=== PATIENT | female | born 1970 | race Caucasian/White ===

== ENCOUNTER 2017-11-03 23:34 | Emergency (ER) | payer MEDICARE, OTHER ==
[2017-11-04 00:08] LABS: Bilirubin Negative (Negative); Blood, Urine Negative (Negative); Clarity CLEAR (Clear); Glucose, Urine (Dipstick) 100 mg/dL (Negative); Leukocyte Large (Negative); Nitrite Negative (Negative); Protein, Urine (Dipstick) Negative (Neg-Trace); Specific Gravity, Urine 1.015 (1.002-1.036)
[2017-11-04 00:09] LABS: Bacteria/HPF 2+ HPF (None Seen); Hyaline Casts/LPF 0-3 HYALINE CAST LPF (0-3 Hyaline); Pathc Cast-AUWi Flag 0.14 (0-2.49); RBC/HPF 0-3 HPF (0-3); Squamous Epithelial 0-3 HPF (0-3)
[2017-11-04] MEDS ORDERED: Ketorolac Tromethamine 30 MG/ML VIAL ONE (00:09)
[2017-11-04 00:24] LABS: #Eosinphils 0.1 thou/uL (0.0-0.7); #Lymphocytes 3.1 thou/uL (1.20-3.40); #Monocytes 0.5 thou/uL (0.11-0.59); #Neutrophils 5.1 thou/uL (1.40-6.50); %Basophils 0.5 % (0.0-1.0); %Eosinophils 1.2 % (0.0-10.0); %Lymphocytes 34.7 % (21.0-51.0); %Monocytes 6.1 % (0.0-10.0); %Neutrophils 57.5 % (42.0-75.0); Hemoglobin 13.2 g/dL (12.0-16.0); Mean Corpuscular Hemoglobin 29.1 pg (27.0-31.0); Mean Corpuscular Volume 80.9 fl (81.0-99.0); Platelet Count 224 thou/uL (130-400); RBC Distribution Width 12.9 % (11.5-14.5); Red Blood Cell (RBC) Count 4.53 mill/uL (4.20-5.40); White Blood Cell (WBC) Count 8.8 thou/uL (4.8-10.8)
[2017-11-04 00:41] LABS: BHCG - Serum Negative (NEGATIVE); Pregs Control Background? CLEAR/WHITE (CLR/WHITE); Pregs Control Bar Appear? YES (CONTROL BAR)
[2017-11-04 00:45] LABS: ALT (SGPT) 18 U/L (8-55); AST (SGOT) 14 U/L (5-34); Albumin 4.4 g/dL (3.5-5.0); Alkaline Phosphatase 60 U/L (40-150); Anion Gap 16 mmol/L (10-20); BUN (Urea Nitrogen) 15 mg/dL (7.0-18.7); Bilirubin, Total 0.2 mg/dL (0.2-1.2); Calc. Creatinine Clearance 0 mL/min (70-130); Calcium 10.2 mg/dL (7.8-10.44); Carbon Dioxide 23 mmol/L (22-29); Chloride 104 mmol/L (98-107); Estimated GFR-MDRD 65; Globulin 2.8 g/dL (2.4-3.5); Glucose 120 mg/dL (70-105); Lipase 60 U/L (8-78); Potassium 3.5 mmol/L (3.5-5.1); Protein, Total 7.2 g/dL (6.0-8.3); Sodium 139 mmol/L (136-145)
[2017-11-04] MEDS ORDERED: traMADol HCl 50 MG TAB ONE (02:20)
--- NOTE | 2017-11-04 11:24 | CT ---
PRELIMINARY REPORT/[facility]/EMERGENCY AFTER HOURS PROCEDURE: EXAM: CT Abdomen and Pelvis Without Intravenous Contrast CLINICAL HISTORY: 47 years old, female; Pain; Abdominal pain; Localized; Lower; Patient HX: Er 8; F47 presents to ed vi a ems transport C/O abd pain, onset tonight. Pt reports lower abd pain that radiates to her back. Matt n quality is stabbing and onset was sudden and began as pressure then quickly became severe and sharp. Last bm this morning, and it was nrml. Associated with foul smelling urine. Denies incr ur inary frequency. No HX kidney stones. Surgical history of appendectomy, surgical history of hysterect caitlyn TECHNIQUE: Axial computed tomography images of the abdomen and pelvis without intravenous contrast. Coronal refo rmatted images were created and reviewed. COMPARISON: No relevant prior studies available. FINDINGS: Lung bases: Normal. No mass. No consolidation. ABDOMEN: Liver: Normal. Gallbladder and bile ducts: Normal. Pancreas: Normal. Spleen: Normal. Adrenals: Normal. Kidneys and ureters: Normal. Stomach and bowel: Few loops of nondilated, minimally thickened mid small bowel, possibly mild enteri tis. Appendix: No findings to suggest acute appendicitis. PELVIS: Bladder: Normal. Reproductive: Uterus is surgically absent. ABDOMEN and PELVIS: Intraperitoneal space: Normal. No free air. No significant fluid collection. Bones/joints: No acute fracture. No dislocation. Soft tissues: Normal. Vasculature: Multiple phleboliths within the pelvis. No abdominal aortic aneurysm. Lymph nodes: Normal. IMPRESSION: 1. Few loops of nondilated, minimally thickened mid small bowel, possibly mild enteritis. 2. Incidental/non-acute findings are described above. Thank you for allowing us to participate in the care of your patient. Dictated and Authenticated by: Emmanuel Rodríguez MD 11/04/2017 12:58 AM Central Time ([place] & [place]) FINAL REPORT CT ABDOMEN AND PELVIS NONCONTRAST PERFORMED ON AN EMERGENCY BASIS: Date: 11/04/17 Time: 0027 hours HISTORY: Bilateral flank pain. FINDINGS: No comparison. Findings agree with the preliminary report by Oton[facility]. Phleboliths are apparent within th e retroperitoneum. No CT evidence of urinary tract obstruction or calcification. Lack of contrast dec reases sensitivity of exam for other abnormalities. Mildly distended fluid-filled small bowel loops i n the upper abdomen are nonspecific. POS: H
== END 2017-11-04 02:30 | disposition home or self-care (01) ==
LOC: ERS 23:34
DX: Z79.899 Other long term (current) drug therapy; E78.5 Hyperlipidemia, unspecified; Z79.84 Long term (current) use of oral hypoglycemic drugs; F20.9 Schizophrenia, unspecified; I10 Essential (primary) hypertension; F41.9 Anxiety disorder, unspecified; F32.9 Major depressive disorder, single episode, unspecified; E11.9 Type 2 diabetes mellitus without complications; N30.00 Acute cystitis without hematuria
CPT/HCPCS: 36415; 74176; 80053; 81003; 81015; 83690; 84703; 85025; 96374; J1885

== ENCOUNTER 2017-11-21 09:20 | Observation (INO) | payer MEDICARE ==
[2017-11-21 10:16] LABS: #Eosinphils 0.1 thou/uL (0.0-0.7); #Lymphocytes 1.6 thou/uL (1.20-3.40); #Monocytes 0.4 thou/uL (0.11-0.59); #Neutrophils 3.7 thou/uL (1.40-6.50); %Basophils 0.1 % (0.0-1.0); %Eosinophils 1.6 % (0.0-10.0); %Lymphocytes 28.1 % (21.0-51.0); %Monocytes 7.4 % (0.0-10.0); %Neutrophils 62.8 % (42.0-75.0); Hemoglobin 12.5 g/dL (12.0-16.0); Mean Corpuscular HGB CONC 33.9 g/dL (32.0-36.0); Mean Corpuscular Hemoglobin 27.9 pg (27.0-31.0); Mean Corpuscular Volume 82.2 fl (81.0-99.0); Mean Platelet Volume 6.7 fL (7.4-10.4); Platelet Count 200 thou/uL (130-400); RBC Distribution Width 12.9 % (11.5-14.5); Red Blood Cell (RBC) Count 4.47 mill/uL (4.20-5.40); White Blood Cell (WBC) Count 5.8 thou/uL (4.8-10.8)
[2017-11-21] MEDS ORDERED: Morphine 4 MG/ML VIAL ONE (10:22)
[2017-11-21 10:25] LABS: AST (SGOT) 30 U/L (5-34); Albumin 4.2 g/dL (3.5-5.0); Alkaline Phosphatase 64 U/L (40-150); Anion Gap 15 mmol/L (10-20); BUN (Urea Nitrogen) 7 mg/dL (7.0-18.7); Bilirubin, Total 0.3 mg/dL (0.2-1.2); Calc. Creatinine Clearance 0 mL/min (70-130); Calcium 9.7 mg/dL (7.8-10.44); Carbon Dioxide 25 mmol/L (22-29); Chloride 103 mmol/L (98-107); Estimated GFR-MDRD 84; Globulin 2.7 g/dL (2.4-3.5); Glucose 268 mg/dL (70-105); Potassium 3.6 mmol/L (3.5-5.1); Protein, Total 6.9 g/dL (6.0-8.3); Sodium 139 mmol/L (136-145)
[2017-11-21 10:26] LABS: ALT (SGPT) 43 U/L (8-55); CK (CPK) 59 U/L (29-168)
--- NOTE | 2017-11-21 10:27 | RAD ---
CHEST 1 VIEW: Date: 11/21/17 HISTORY: Chest pain. COMPARISON: Chest radiograph from 2010. FINDINGS: Lungs are clear. No pneumothorax or effusion. Cardiac silhouette and mediastinal contours are within normal limits. Mild dextroscoliosis of the lower thoracic spine. IMPRESSION: No acute intrathoracic abnormality. POS: T[facility]
[2017-11-21 10:29] LABS: Troponin I Less than 0.010 ng/mL (< 0.028)
[2017-11-21 10:37] LABS: Lipase 52 U/L (8-78); Magnesium 1.8 mg/dL (1.6-2.6)
--- NOTE | 2017-11-21 12:43 | HP ---
PRIMARY CARE PHYSICIAN: Daniel Juarez M.D. REASON FOR ADMISSION: Chest pain. HISTORY OF PRESENT ILLNESS: A 47-year-old female who has underlying history of diabetes type 2, hype rtension, and dyslipidemia who presented to emergency room with complaint of chest pain. Patient rep orts that chest pain started last night. It was across the chest with radiation to left upper extrem ity and back. Patient was also experiencing pain radiating to neck. Her intensity of pain was 8/10. It was getting worse with movement. There was no relation of chest discomfort with food, respirati on or activity. Patient felt mild nausea and mild dizziness. She denies any associated shortness of breath and palpitations. She denies any syncopal episode. She denies any orthopnea, PND or leg swe lling. Patient mainly reported that with movement or taking a deep breath, her chest pain was gettin g worse. In the emergency room, patient was hemodynamically stable. Her D-dimer was negative. Her chest x-ra y was normal. Her routine blood test including CBC, BMP, and cardiac enzymes were negative. Her EKG was also not showing any acute ischemic changes. The patient never had any cardiac workup. The pat ient is over concerned about her heart. Patient also feels acid reflux symptoms intermittently. Cur rently, she denies any burping. She denies any epigastric pain. She denies taking any NSAIDs. ALLERGIES: ROCEPHIN. CURRENT HOME MEDICATIONS: Lipitor 20 mg p.o. daily, tramadol 50 mg q.8 hourly p.r.n., lisinopril 20 mg p.o. daily, metformin 850 mg twice daily, Novolin insulin 80 units subcu in the morning and 70 uni ts in evening. REVIEW OF SYSTEMS: The following complete review of systems was negative, unless otherwise mentioned in the HPI or below: Constitutional: Weight loss or gain, ability to conduct usual activities. Skin: Rash, itching. Eyes: Double vision, pain. ENT/Mouth: Nose bleeding, neck stiffness, pain, tenderness. Cardiovascular: Palpitations, dyspnea on exertion, orthopnea. Respiratory: Shortness of breath, wheezing, cough, hemoptysis, fever or night sweats. Gastrointestinal: Poor appetite, abdominal pain, heartburn, nausea, vomiting, constipation, or diarr hea. Genitourinary: Urgency, frequency, dysuria, nocturia. Musculoskeletal: Pain, swelling. Neurologic/Psychiatric: Anxiety, depression. Allergy/Immunologic: Skin rash, bleeding tendency. Please see my HPI for pertinent positive and negative. All other review of systems reviewed and nega tive except as mentioned in the HPI. PAST MEDICAL HISTORY: Diabetes type 2, hypertension, dyslipidemia, and migraine headache. PAST SURGICAL HISTORY: Appendicectomy and hysterectomy. PAST PSYCHIATRIC HISTORY: Anxiety, depression, and schizophrenia. The patient is not on any specifi c medication at this point. SOCIAL HISTORY: The patient lives at home with family. No history of tobacco, alcohol or illicit dr ug abuse. FAMILY HISTORY: Positive for coronary artery disease to father and grandmother. No strong family hi story of cancer or stroke. EMERGENCY ROOM COURSE: Patient is given morphine 4 mg. PHYSICAL EXAMINATION: VITAL SIGNS: On arrival, blood pressure 132/96, pulse 82, respiratory rate 20, temperature 98.5, sat uration 99% on room air, and weight 59.8 kilograms. GENERAL: Patient is currently alert, awake, in no obvious acute distress. HEAD: Normocephalic, atraumatic. EYES: Pupils round, reactive to light. Extraocular muscle intact. ENT: Oropharynx within normal limits. Moist mucous membranes, no oral lesion, no pharyngeal erythem a, no exudate. NECK: Supple, no JVD, no thyromegaly, no carotid bruit, no jugular venous distention. LUNGS: Clear to auscultation without any rhonchi or rales. CARDIAC: S1 and S2 regular without any significant murmur. ABDOMEN: Obesity present. Bowel sounds present, nontender, nondistended. No organomegaly, no mass, no suprapubic tenderness. BACK: Examination unremarkable, no CVA tenderness. EXTREMITIES: Upper extremity passive movements of all joints are normal. Lower extremities: No caio ma. Good peripheral pulsation, no calf tenderness, no edema. SKIN: No skin rash. HEMATOLOGICAL SYSTEM: No lymphadenopathy. PSYCHIATRIC: Normal affect. NEUROLOGIC: Nonfocal examination. The patient moves all 4 limbs. No cerebellar sign. Speech christian l. IMAGING DATA AND SIGNIFICANT LABORATORY DATA: 1. EKG showing normal sinus rhythm within normal limit. 2. Chest x-ray based on my review, no acute cardiopulmonary process. 3. CBC: WBC 5.8, hemoglobin 12.5, and platelet 200. 4. D-dimer less than 0.27. 5. BMP: Sodium 139, potassium 3.6, chloride 103, carbon dioxide 25, anion gap 15, BUN 7, creatinine 0.74, glucose 268, calcium 9.7, and magnesium 1.8. 6. LFT: AST 30, ALT 43, alkaline phosphatase 64, albumin 4.2, lipase 52. CK 59, CK-MB 1.0, troponi n I less than 0.010. ASSESSMENT AND PLAN/IMPRESSION: 1. Acute chest pain. Patient's chest pain description is atypical. I am suspecting musculoskeletal pain versus acid reflux. She has several risk factors for coronary artery disease including diabete s, hypertension, dyslipidemia as well as family history. She never had any cardiac workup and the pa genoveva is interested in going for cardiac workup. We will do stress test if possibly today. The david ent is n.p.o. since morning. If stress test can be done today and if it is normal, then we will cons ider discharging her home later on today with the same home medication. Her D-dimer is negative and description is not consistent with thromboembolic disorder and in this way we completely excluded thr omboembolic disorder. If stress test is not possible today, then we will perform tomorrow morning an d then if stress is negative, then we will consider discharging her tomorrow morning. We will check lipid profile for risk stratification. We will meanwhile continue with aspirin 325 mg p.o. daily, ni troglycerin p.r.n. basis, and nitropatch q.8 hourly. Healthy lifestyle measures discussed with the p atient. We will also try Pepcid 20 mg p.o. b.i.d. 2. Dyslipidemia. Check lipid profile tomorrow and continue Lipitor 20 mg p.o. at bedtime. 3. Hypertension. Continue lisinopril 20 mg p.o. daily and continue nitropatch q.8 hourly and titrat e blood pressure medication. 4. Diabetes type 2. Continue metformin 850 mg twice daily, Novolin insulin 80 units in the morning and 70 units in evening. Diabetic diet will be given and insulin as per sliding scale protocol. 5. Obesity. Dietary education given. Weight loss education given. Healthy lifestyle measures disc ussed with the patient. 6. Deep venous thrombosis prophylaxis not needed because we are expecting discharge in 24 hours. 7. Gastrointestinal prophylaxis, Pepcid 20 mg p.o. b.i.d. 8. Code status: The patient is FULL CODE. Patient's is surrogate decision maker. DISPOSITION AND PLAN: Based on stress test result either today, later on or tomorrow morning, depend ing upon stress test result.
[2017-11-21] MEDS ORDERED: Acetaminophen 325 MG TAB PO PRN (13:06)
[2017-11-21] MEDS ORDERED: Loperamide HCl 2 MG CAP PO PRN (13:06)
[2017-11-21] MEDS ORDERED: Artificial Tears 18 DROP/0.9 ML EA EYE PRN (13:06)
[2017-11-21] MEDS ORDERED: Senokot 8.6 MG TAB PO PRN (13:06)
[2017-11-21] MEDS ORDERED: Loratadine 10 MG TAB PO PRN (13:06)
[2017-11-21] MEDS ORDERED: Eucerin (Mineral Oil/Petrolatum,White) 30 gm Jar TOP PRN (13:06)
[2017-11-21] MEDS ORDERED: Sodium Chloride 0.65% Nasal 44 ML BOT EA NARE PRN (13:06)
[2017-11-21] MEDS ORDERED: Dextrose 5% in Water 1,000 ML IV PRN (13:06)
[2017-11-21] MEDS ORDERED: Ondansetron ODT 4 MG TAB PO PRN (13:06)
[2017-11-21] MEDS ORDERED: hydrALAZINE 20 MG/ML VIAL SLOW IVP PRN (13:06)
[2017-11-21] MEDS ORDERED: Dextrose 50% Abboject 50 ML SYRINGE SLOW IVP PRN (13:06)
[2017-11-21] MEDS ORDERED: Zolpidem Tartrate 5 MG TAB PO PRN (13:06)
[2017-11-21] MEDS ORDERED: Diabetic Tussin 200 MG/10 ML UDCUP PO PRN (13:06)
[2017-11-21] MEDS ORDERED: Milk Of Magnesia 30 ML UDCUP PO PRN (13:06)
[2017-11-21] MEDS ORDERED: Nitroglycerin 0.4 MG TAB (25 Tab Bottle) SL PRN (13:06)
[2017-11-21] MEDS ORDERED: Mag-Al 1200 mg/1200 mg/30 ML UDCUP PO PRN (13:06)
[2017-11-21] MEDS ORDERED: Insulin Regular 300 UNITS/3 ML VIAL SC PRN ×2 (13:06)
[2017-11-21] MEDS ORDERED: Chloraseptic Spray 180 ml Bottle PO PRN (13:06)
[2017-11-21] MEDS ORDERED: Ondansetron HCl/PF 4 MG/2 ML Vial IVP PRN (13:06)
[2017-11-21] MEDS ORDERED: Aspirin 325 MG TAB PO SCH (13:45)
[2017-11-21 13:46] LABS: Troponin I Less than 0.010 ng/mL (< 0.028)
[2017-11-21] MEDS: Nitroglycerin 2% Ointment 1 INCH/1 GM Packet TOP SCH ×2 (15:16→22:53)
[2017-11-21] MEDS: metFORMIN 850 MG TAB PO SCH (15:27)
[2017-11-21] MEDS: HYDROcodone/Acetaminophen 10/325 mg Tablet PO PRN ×2 (15:27→20:06)
[2017-11-21 16:52] LABS: Troponin I Less than 0.010 ng/mL (< 0.028)
[2017-11-21 17:14] VITALS: BMI 26.6
[2017-11-21] MEDS: Famotidine 20 MG TAB PO SCH (20:06)
[2017-11-21] MEDS ORDERED: Insulin NPH/Reg Insulin Hm 300 UNITS/3 ML VIAL SC SCH (21:00)
[2017-11-21] MEDS ORDERED: Atorvastatin Calcium 20 MG TAB PO SCH (21:00)
[2017-11-22] MEDS: HYDROcodone/Acetaminophen 10/325 mg Tablet PO PRN ×3 (00:05→10:39)
[2017-11-22 05:30] LABS: Cardiac Risk 3.5 (Less than 4.5)
[2017-11-22] MEDS: Nitroglycerin 2% Ointment 1 INCH/1 GM Packet TOP SCH ×2 (05:59→14:34)
[2017-11-22] MEDS ORDERED: Insulin NPH/Reg Insulin Hm 300 UNITS/3 ML VIAL SC SCH (09:00)
[2017-11-22] MEDS ORDERED: Aspirin 325 MG TAB PO SCH (09:00)
[2017-11-22] MEDS ORDERED: Lisinopril 20 MG TAB PO SCH (09:00)
[2017-11-22] MEDS: Famotidine 20 MG TAB PO SCH (10:33)
[2017-11-22] MEDS: metFORMIN 850 MG TAB PO SCH (10:33)
--- NOTE | 2017-11-22 11:41 | NM ---
MYOCARDIAL PERFUSION SCAN WITH SPECT IMAGING: History: Chest pain. FINDINGS: Examination was performed using 33 mCi Technetium 99M Sestamibi on stress and 11 on the resting image s. This shows a normal distribution of radiopharmaceutical. No signs of ischemia or scar. WALL MOTION: There is symmetric contractility to the ventricle. LEFT VENTRICULAR EJECTION FRACTION: The calculated left ventricular ejection fraction was 88%. IMPRESSION: Unremarkable myocardial perfusion scan. POS: CAT
[2017-11-22 12:28] VITALS: BP 128/82; TEMP 99.1
--- NOTE | 2017-11-22 13:21 | DIS ---
DATE OF ADMISSION: 11/21/2017 DATE OF DISCHARGE: 11/22/2017 PRIMARY CARE PHYSICIAN: Dr. Daniel Juarez. DISCHARGE DIAGNOSES: 1. Noncardiac chest pain. 2. Diabetes mellitus type 2. 3. Hypertension, essential. 4. Hyperlipidemia. 5. Migraine headaches. CONSULTATIONS: None. PROCEDURE: A nuclear stress test on 11/22/2017 that was negative for inducible ischemia. HISTORY AND PHYSICAL: Ms. Myles is a 47-year-old female with history of diabetes and hypertension w ho presents to the emergency department on the day of admission with complaints of atypical chest kana n starting the night before presentation. Workup in the emergency department was unremarkable and we were called for admission. HOSPITAL COURSE: The patient was seen and examined by Dr. Fuchs and placed in observation. Serial cardiac biomarkers were obtained, patient was kept n.p.o. and underwent the resting phase of the str ess test on 11/21/2017. The patient was kept overnight and the active portion of the stress test was done this morning. The patient has no inducible ischemic changes and was stable for discharge with o utpatient followup. PHYSICAL EXAMINATION: The patient was seen and examined on the day of discharge. Discharge plan and disposition was discussed with the patient face to face at the bedside. DISCHARGE MEDICATIONS: 1. Lipitor 20 mg p.o. at bedtime. 2. Novolin N 80 units subcu q.a.m. and 70 units subcu q.p.m. with meals. 3. Lisinopril 20 mg p.o. daily. 4. Metformin 850 mg p.o. b.i.d. FOLLOWUP APPOINTMENTS: Primary care physician, Dr. Juarez, in a week. DISCHARGE ACTIVITY: Per cardiopulmonary limits. DISCHARGE DIET: Heart healthy diabetic diet recommended. DISCHARGE CONDITION: Stable. DISPOSITION: Being discharged home via private vehicle.
[2017-11-22] MEDS ORDERED: Regadenoson 0.4 MG/5 ML SYRINGE ONE (14:40)
== END 2017-11-22 14:45 | disposition home or self-care (01) ==
LOC: ERS 09:20 → 2SW 11:59
PROVIDERS: ADMIT Internal Medicine; ATTEND Internal Medicine
DX: R07.89 Other chest pain (principal); E78.5 Hyperlipidemia, unspecified; I10 Essential (primary) hypertension; E11.9 Type 2 diabetes mellitus without complications; G43.909 Migraine, unspecified, not intractable, without status migrainosus; F20.9 Schizophrenia, unspecified; F32.9 Major depressive disorder, single episode, unspecified; F41.9 Anxiety disorder, unspecified; E66.9 Obesity, unspecified; Z88.1 Allergy status to other antibiotic agents; Z79.4 Long term (current) use of insulin; Z82.49 Family history of ischemic heart disease and other diseases of the circulatory system
CPT/HCPCS: 71045; 78452; 80053; 80061; 82550; 82553; 82962 ×2; 83690; 83735; 84484 ×2; 85025; 85379; 90732; 93005; 93017; 94760; 96374; 99285; A9500; G0009; G0378; 36415; 36416; 90471; J1815; J2270; J2785; Q0162